=== PATIENT | female | born 1985 | race Caucasian/White ===

== ENCOUNTER → 2020-09-02 11:50 | Outpatient (CLI) | payer BC, SELFPAY ==
[2020-09-02 13:24] LABS: Triiodothryronine (T3) Uptake 31 % (23.5-40.5)
[2020-09-02 13:25] LABS: Free Thyroxine Index 2.8 ug/dL (5.93-13.13)
[2020-09-02 13:39] LABS: Thyroid Stimulating Hormone 2.24 uIU/mL (0.465-4.68)
[2020-09-03 15:21] LABS: Estradiol <5.0 pg/mL (.); FSH 64.9 mIU/mL (.); LH 29.5 mIU/mL (.)
== END ==
PROVIDERS: Visit Provider Nurse Practitioner Obstetrics & Gynecology
DX: N95.1 Menopausal and female climacteric states (principal); R53.82 Chronic fatigue, unspecified; R53.83 Other fatigue
CPT/HCPCS: 36415; 82670; 83001; 83002; 84436; 84443; 84479

== ENCOUNTER → 2021-06-05 08:06 | Outpatient (CLI) | payer BC, SELFPAY ==
--- NOTE | 2021-06-05 08:12 | XR_ITS ---
PROCEDURE: XR LUMBAR SPINE 2-3V CLINICAL INDICATION: LOW BACK PAIN COMPARISON: No exams were available for comparison FINDINGS: Minimal lumbar curvature convex right. Bilateral Essure devices and bilateral tubal ligation clips. No acute fracture or dislocation. No lytic or blastic change. The disc spaces are well preserved. Small limbus vertebra noted superiorly at IMPRESSION: Mild lumbar scoliosis, no acute finding. Dictated by: John Gupta MD 06/05/2021 11:27 John Gupta MD in [facility] 06/05/2021 11:27
== END ==
PROVIDERS: PCP Nurse Practitioner Family; Visit Provider Nurse Practitioner Family
DX: M54.5 Low back pain (principal)
CPT/HCPCS: 72100

== ENCOUNTER → 2021-09-15 16:19 | Outpatient (CLI) | payer BC, SELFPAY ==
[2021-09-17 08:17] LABS: Estradiol <5.0 pg/mL (.); FSH 57.6 mIU/mL (.); LH 31.1 mIU/mL (.)
== END ==
PROVIDERS: Visit Provider Nurse Practitioner Obstetrics & Gynecology
DX: E28.319 Asymptomatic premature menopause (principal); N95.1 Menopausal and female climacteric states
CPT/HCPCS: 36415; 82670; 83001; 83002

== ENCOUNTER → 2021-10-21 10:28 | Outpatient (CLI) | payer BC, SELFPAY | PROVIDERS: Visit Provider Nurse Practitioner | DX: U07.1 COVID-19 (principal) | CPT/HCPCS: C9803; U0003; U0005 ==

== ENCOUNTER 2025-01-18 09:54 | Outpatient (CLI) | payer BC, SELFPAY ==
[2025-01-18 10:31] LABS: Basophils # 0.1 K/mm3 (0-0.2); Basophils % 0.7 % (0.1-2.0); Eosinophils # 0.2 K/mm3 (0.0-0.4); Eosinophils % 1.8 % (0.1-12.0); Hematocrit 43.6 % (37.0-47.0); Hemoglobin 14.7 g/dL (12.2-16.2); Lymphocytes # 2.4 K/mm3 (0.7-4.5); Lymphocytes % 29.4 % (10-50); Mean Corpuscular HGB Conc 33.7 g/dL (31.8-35.4); Mean Corpuscular Hemoglobin 30.4 pg (27.0-31.2); Mean Corpuscular Volume 90.3 fl (81-99); Mean Platelet Volume 10.6 fl (7.4-10.4); Monocytes # 0.4 K/mm3 (0.1-1.0); Monocytes % 5.3 % (1.7-9.3); Neutrophils # 5.2 K/mm3 (1.8-7.8); Neutrophils % 62.6 % (37.0-80.0); Platelet Count 252 K/mm3 (142-424); Red Blood Count 4.83 M/mm3 (4.20-5.40); Red Cell Distribution Width 12.1 % (11.5-17.5); White Blood Count 8.3 K/mm3 (4.8-10.8)
[2025-01-18 11:12] LABS: Alanine Aminotransferase 18 U/L (12-78); Albumin Level 4.8 g/dl (3.5-5.0); Albumin/Globulin Ratio 1.7 (1.1-1.8); Alkaline Phosphatase 55 U/L (38-126); Anion Gap 13.3 mEq/L (5-15); Aspartate Amino Transferase 23 U/L (14-36); Bilirubin,Total 0.7 mg/dl (0.2-1.3); Blood Urea Nitrogen 13 mg/dl (7-17); Calcium 9.6 mg/dl (8.4-10.2); Carbon Dioxide 27 mmol/L (22.0-30.0); Chloride 104 mmol/L (98-107); Chol/HDL Ratio 4.6 (1-3.5); Cholesterol 273 mg/dl (140-200); Estimated Glomerular Filt Rate 93 ml/min (>60); GFR (African American) 112 ML/MIN (>60); Globulin 2.8 g/dL (1.3-3.2); Glucose 84 mg/dl (74-100); HDL Cholesterol 59 mg/dl (40-60); Potassium 4.3 mmoL/L (3.5-5.1); Sodium 140 mmol/L (136-145); Total Protein,Serum 7.6 g/dl (6.3-8.2); Triglycerides 145 mg/dl (30-150); VLDL Cholesterol 29 mg/dL (0-40)
[2025-01-18 11:23] LABS: Direct LDL Cholesterol 175.11 mg/dL (100-129)
[2025-01-18 11:28] LABS: 25-OH Vitamin D, Total 33.9 ng/mL (30-100)
== END 2025-01-18 23:59 | disposition home or self-care (01) ==
LOC: LAB 09:55
PROVIDERS: PCP Nurse Practitioner Family; Visit Provider Nurse Practitioner Obstetrics & Gynecology
DX: N95.1 Menopausal and female climacteric states (principal)
CPT/HCPCS: 36415; 80053; 80061; 82306; 85025